=== PATIENT | female | born 1995 ===

== ENCOUNTER 2021-05-08 09:48 | Outpatient (CLI) | payer OTHER | END 2021-05-08 10:00 | disposition home or self-care (01) | LOC: RAD 09:48 | PROVIDERS: ATTEND Obstetrics & Gynecology Reproductive Endocrinology | DX: N93.0 Postcoital and contact bleeding (principal) ==

== ENCOUNTER 2024-06-26 07:24 | Outpatient (CLI) | payer OTHER | END 2024-06-26 08:53 | disposition home or self-care (01) | LOC: MAMO-SONO 07:24 | PROVIDERS: ATTEND General Practice | DX: N83.201 Unspecified ovarian cyst, right side (principal); R10.2 Pelvic and perineal pain; D25.9 Leiomyoma of uterus, unspecified; N92.6 Irregular menstruation, unspecified; E04.2 Nontoxic multinodular goiter; R79.89 Other specified abnormal findings of blood chemistry; N60.11 Diffuse cystic mastopathy of right breast; Z80.3 Family history of malignant neoplasm of breast; Z12.31 Encounter for screening mammogram for malignant neoplasm of breast ==

== ENCOUNTER 2024-07-02 07:38 | Outpatient (CLI) | payer OTHER | END 2024-07-02 07:40 | disposition home or self-care (01) | LOC: SONOGRAMA 07:38 | PROVIDERS: ATTEND Pathology Anatomic Pathology & Clinical Pathology | DX: D34 Benign neoplasm of thyroid gland (principal); E07.89 Other specified disorders of thyroid; E04.1 Nontoxic single thyroid nodule; C55 Malignant neoplasm of uterus, part unspecified; R10.2 Pelvic and perineal pain | CPT/HCPCS: 72197 ==

== ENCOUNTER 2024-07-22 16:25 | Outpatient (CLI) | payer OTHER | END 2024-07-22 16:32 | disposition home or self-care (01) | LOC: RAD 16:25 | DX: Z01.810 Encounter for preprocedural cardiovascular examination (principal) ==

== ENCOUNTER 2024-08-27 07:39 | Outpatient (CLI) | payer OTHER | END 2024-08-27 07:40 | disposition home or self-care (01) | LOC: NUCLEAR 07:39 | DX: C54.1 Malignant neoplasm of endometrium (principal) ==